=== PATIENT | male | born 1985 | race Caucasian/White ===

== ENCOUNTER 2019-01-20 16:20 | Emergency (ER) | payer BC ==
[~2019-01-20] VITALS: Ht 180.3 cm; Wt 88.5 kg
[~2019-01-20 16:20] MED LIST: ASPIRIN81 M1 PO; ATORVASTATIN CA80 M1 PO; HYDROCODONE BIT1 T11 PO; LIPITOR40 MG PO; LOPRESSOR25 MG PO; MEDROL DOSEPAK4 MG PO; MOTRIN800 MG PO; NITROGLYCERINE SL; PLAVIX75 MG PO; VIBRAMYCIN100 MG PO
[2019-01-20] MEDS ORDERED: NORCO 10-325 T1 EACH PO (18:10)
[2019-02-01] MEDS ORDERED: ZOFRAN4 MG PO (14:43)
[2019-02-01] MEDS ORDERED: Percocet 325 MG1 TAB PO (14:48)
== END 2019-01-20 17:50 | disposition home or self-care (01) ==
LOC: ED 16:20
DX: S82.491A Other fracture of shaft of right fibula, initial encounter for closed fracture (principal); S82.51XA Displaced fracture of medial malleolus of right tibia, initial encounter for closed fracture; I25.2 Old myocardial infarction; E78.5 Hyperlipidemia, unspecified; Z91.81 History of falling; W01.0XXA Fall on same level from slipping, tripping and stumbling without subsequent striking against object, initial encounter; Y93.89 Activity, other specified; Y92.89 Other specified places as the place of occurrence of the external cause; Y99.0 Civilian activity done for income or pay

== ENCOUNTER → 2019-02-01 | Day surgery (SDC) | payer BC ==
[2019-01-25 11:01] LABS: BILIRUBIN NEGATIVE (NEGATIVE); BLOOD NEGATIVE (NEGATIVE); CLARITY SL CLOUDY (CLEAR); COLOR YELLOW (YELLOW); GLUCOSE NEGATIVE (NEGATIVE); KETONE TRACE (NEGATIVE); LEUKO ESTERASE TRACE (NEGATIVE); NITRITE NEGATIVE (NEGATIVE); PH 6.5 (5.0-9.0)
[2019-01-25 11:09] LABS: BASO # 0.1 10*3/uL (0.0-0.1); BASO % 0.6 % (0.0-1.0); EOS # 0.4 10*3/uL (0.0-0.4); HEMATOCRIT 45.6 % (42.0-52.0); HEMOGLOBIN 16.1 g/dl (14.0-18.0); LYMPH # 2.1 10*3/uL (1.3-4.4); LYMPH % 22.3 % (27.0-41.0); MEAN CELL VOLUME 91.6 fl (80.0-94.0); MEAN CORPUSCULAR HGB 32.3 pg (27.0-31.0); MEAN CORPUSCULAR HGB CONC 35.3 g/dl (33.0-37.0); MEAN PLATELET VOLUME 9.8 fl (9.6-12.3); MONO # 0.8 10*3/uL (0.1-1.0); MONO % 8.9 % (3.0-9.0); NEUT % 63.9 % (47.0-73.0); PLATELET COUNT AUTOMATED 312 10*3/uL (130-400); RED BLOOD COUNT 4.98 10*6/uL (4.50-5.90); RED CELL DISTRI WIDTH 12.8 % (0-14.5); WHITE BLOOD COUNT 9.3 10*3/uL (4.8-10.8)
[2019-01-25 11:32] LABS: MUCOUS 1+; RBC 0-2 rbc/hpf (0-2)
[2019-01-25 11:48] LABS: BUN 14 mg/dl (7-24); CHLORIDE 104 mmol/L (98-107); CREATININE 0.91 mg/dL (0.70-1.30); POTASSIUM 4.1 mmol/L (3.5-5.1); SODIUM 137 mmol/L (136-145)
[~2019-02-01] VITALS: Ht 180.3 cm; Wt 93.0 kg
[2019-02-01] VITALS (11 sets, daily range): BP systolic 122–162; BP diastolic 72–99
[~2019-02-01] MED LIST changes: +NORCO 10-325 T1 EACH PO; +Percocet 325 MG1 TAB PO; +ZOFRAN4 MG PO
== END | disposition home or self-care (01) ==
LOC: SDC 01-25 09:30
PROVIDERS: Orthopaedic Surgery
DX: S82.51XA Displaced fracture of medial malleolus of right tibia, initial encounter for closed fracture (principal); X58.XXXA Exposure to other specified factors, initial encounter; Y93.89 Activity, other specified; Y92.098 Other place in other non-institutional residence as the place of occurrence of the external cause; Y99.8 Other external cause status; I25.2 Old myocardial infarction; I25.10 Atherosclerotic heart disease of native coronary artery without angina pectoris; I10 Essential (primary) hypertension; F41.9 Anxiety disorder, unspecified; E78.00 Pure hypercholesterolemia, unspecified; Z79.82 Long term (current) use of aspirin; Z79.899 Other long term (current) drug therapy; Z72.89 Other problems related to lifestyle; Z95.5 Presence of coronary angioplasty implant and graft; Z83.3 Family history of diabetes mellitus; Z82.49 Family history of ischemic heart disease and other diseases of the circulatory system

== ENCOUNTER → 2019-02-26 | Outpatient (CLI) | payer BC | END | disposition home or self-care (01) | LOC: ORTHO 01:08 | DX: S82.44 Spiral fracture of shaft of fibula (principal); S82.51XD Displaced fracture of medial malleolus of right tibia, subsequent encounter for closed fracture with routine healing; X58.XXXD Exposure to other specified factors, subsequent encounter ==

== ENCOUNTER → 2019-05-21 | Outpatient (CLI) | payer BC | END | disposition home or self-care (01) | LOC: ORTHO 00:41 | DX: S82.44 Spiral fracture of shaft of fibula (principal); S82.51XD Displaced fracture of medial malleolus of right tibia, subsequent encounter for closed fracture with routine healing; X58.XXXD Exposure to other specified factors, subsequent encounter ==

== ENCOUNTER → 2019-06-25 | Outpatient (CLI) | payer BC | END | disposition home or self-care (01) | LOC: ORTHO 01:20 | DX: S82.91XD Unspecified fracture of right lower leg, subsequent encounter for closed fracture with routine healing (principal); X58.XXXD Exposure to other specified factors, subsequent encounter ==

== ENCOUNTER → 2019-08-31 | Outpatient (CLI) | payer BC | END | disposition home or self-care (01) | LOC: ORTHO 02:09 | DX: S82.44 Spiral fracture of shaft of fibula (principal); X58.XXXD Exposure to other specified factors, subsequent encounter ==

== ENCOUNTER → 2021-09-21 | Outpatient (CLI) | payer BC | END | disposition home or self-care (01) | LOC: COVID19 15:08 | PROVIDERS: ATTEND Internal Medicine | DX: Z11.52 Encounter for screening for COVID-19 (principal) ==

== ENCOUNTER → 2023-01-04 | Outpatient (CLI) | payer BC ==
[2023-01-04 12:31] LABS: BASO % 0.5 % (0.0-1.0); EOS # 0.2 10*3/uL (0.0-0.4); EOS % 2.7 % (1.0-4.0); HEMATOCRIT 45.9 % (42.0-52.0); LYMPH # 2.7 10*3/uL (1.3-4.4); LYMPH % 36.6 % (27.0-41.0); MEAN CELL VOLUME 89.5 fl (80.0-94.0); MEAN CORPUSCULAR HGB 31.4 pg (27.0-31.0); MEAN CORPUSCULAR HGB CONC 35.1 g/dl (33.0-37.0); MONO # 0.6 10*3/uL (0.1-1.0); MONO % 8.5 % (3.0-9.0); NEUT # 3.8 10*3/uL (2.3-7.9); NEUT % 51.4 % (47.0-73.0); PLATELET COUNT AUTOMATED 261 10*3/uL (130-400); RED BLOOD COUNT 5.13 10*6/uL (4.50-5.90); WHITE BLOOD COUNT 7.3 10*3/uL (4.8-10.8)
[2023-01-04 12:50] LABS: ALKALINE PHOSPHATASE 107 U/L (46-116); BUN 11 mg/dl (9-23); CHLORIDE 104 mmol/L (98-107); CHOLESTEROL 196 mg/dL (<200); LDL CHOLESTEROL 121 mg/dL (9-159); POTASSIUM 3.7 mmol/L (3.4-5.1); SGPT/ALT 99 U/L (10-49); THYROID STIM HORMONE (HS) 1.286 uIU/ml (0.550-4.780); TOTAL PROTEIN 7.6 gm/dL (6.0-8.0); TRIGLYCERIDES 244 mg/dl (<150)
== END | disposition home or self-care (01) ==
LOC: LAB 12:13
PROVIDERS: ATTEND Internal Medicine Cardiovascular Disease
DX: I25.10 Atherosclerotic heart disease of native coronary artery without angina pectoris (principal)

== ENCOUNTER 2024-09-28 11:45 | Emergency (ER) | payer BC ==
[~2024-09-28] VITALS: Ht 180.3 cm; Wt 94.8 kg
[2024-09-28] MEDS ORDERED: METOPROLOL SUCC25 M2 PO (12:18)
[2024-09-28] MEDS ORDERED: OMEGA-3-ACID ETH1 GM PO (12:18)
[2024-09-28] MEDS ORDERED: ATORVASTATIN CA10 M1 PO (12:18)
[2024-09-28] MEDS ORDERED: ESCITALOPRAM OX10 MG PO (12:18)
[2024-09-28] MEDS ORDERED: ASPIRIN CHEWABL81 MG PO (12:19)
[2024-09-28] MEDS ORDERED: SODIUM CHLORIDE 0.9% 1,000 ML IV ONE (12:25)
[2024-09-28 12:41] LABS: BASO % 0.5 % (0.0-1.0); EOS # 0.2 10*3/uL (0.0-0.4); EOS % 2.2 % (1.0-4.0); HEMATOCRIT 46.8 % (42.0-52.0); MEAN CELL VOLUME 90.9 fl (80.0-94.0); MEAN CORPUSCULAR HGB 31.1 pg (27.0-31.0); MEAN CORPUSCULAR HGB CONC 34.2 g/dl (33.0-37.0); MEAN PLATELET VOLUME 9.2 fl (9.6-12.3); MONO # 0.8 10*3/uL (0.1-1.0); MONO % 10.6 % (3.0-9.0); NEUT # 4.6 10*3/uL (2.3-7.9); NEUT % 58.4 % (47.0-73.0); PLATELET COUNT AUTOMATED 285 10*3/uL (130-400); RED BLOOD COUNT 5.15 10*6/uL (4.50-5.90); RED CELL DISTRI WIDTH 12.7 % (0-14.5); WHITE BLOOD COUNT 7.9 10*3/uL (4.8-10.8)
[2024-09-28 13:02] LABS: BUN 12 mg/dl (9-23); CHLORIDE 106 mmol/L (98-107); POTASSIUM 4.2 mmol/L (3.4-5.1)
[2024-09-28] MEDS ORDERED: ASPIRIN, CHEWABLE 81 MG TAB PO ONE (13:20)
[2024-09-28] MEDS ORDERED: HEPARIN SODIUM 250 ML IV SCH (13:20)
[2024-09-28 14:06] LABS: ACT PARTIAL THROMBO TIME 29.7 SECONDS (20.0-32.1)
== END 2024-09-28 19:57 | disposition short-term general hospital (02) ==
LOC: ED 11:45
PROVIDERS: Emergency Medicine
DX: I21.4 Non-ST elevation (NSTEMI) myocardial infarction (principal); I25.10 Atherosclerotic heart disease of native coronary artery without angina pectoris; F41.9 Anxiety disorder, unspecified; I10 Essential (primary) hypertension; Z98.890 Other specified postprocedural states

== ENCOUNTER → 2025-07-01 | Outpatient (CLI) | payer BC ==
[~2025-07-01] MED LIST changes: +ASPIRIN CHEWABL81 MG PO; +ATORVASTATIN CA10 M1 PO; +ESCITALOPRAM OX10 MG PO; +METOPROLOL SUCC25 M2 PO; +OMEGA-3-ACID ETH1 GM PO
[2025-07-01 12:48] LABS: BASO # 0.0 10*3/uL (0.0-0.1); BASO % 0.6 % (0.0-1.0); EOS # 0.3 10*3/uL (0.0-0.4); EOS % 3.6 % (1.0-4.0); MEAN CELL VOLUME 92.0 fl (80.0-94.0); MEAN CORPUSCULAR HGB 31.2 pg (27.0-31.0); MEAN PLATELET VOLUME 9.1 fl (9.6-12.3); MONO # 0.8 10*3/uL (0.1-1.0); MONO % 11.8 % (3.0-9.0); NEUT # 3.0 10*3/uL (2.3-7.9); NEUT % 41.9 % (47.0-73.0); NUCLEATED RED BLOOD CELL 0.0 % (0.0-0.0); NUCLEATED RED BLOOD CELL 0.0 10*3/uL (0.0-0.0); PLATELET COUNT AUTOMATED 294 10*3/uL (130-400); RED CELL DISTRI WIDTH 12.7 % (0-14.5)
[2025-07-01 13:29] LABS: BUN 15 mg/dl (9-23); SGPT/ALT 44 U/L (5-49)
== END | disposition home or self-care (01) ==
LOC: LAB 12:27
PROVIDERS: Surgery; ATTEND Family Medicine
DX: R19.7 Diarrhea, unspecified (principal)